=== PATIENT | female | born 2000 | race African-American/Black ===

== ENCOUNTER 2025-02-02 06:45 | Emergency (ER) | payer OTHER ==
[~2025-02-02] VITALS: Ht 162.6 cm; Wt 82.8 kg
[2025-02-02 07:53] LABS: KETONE, URINE AUTO RFX NEGATIVE (NEGATIVE); LEUKOCYTE ESTERASE UR AUTO RFX NEGATIVE (NEGATIVE); NITRITE, URINE AUTO RFX NEGATIVE (NEGATIVE); RBC, URINE AUTO RFX 1 /HPF (0-3); SQUAM EPITHELIAL CELL UR AURFX 0 /HPF (0-6); WBC, URINE AUTO RFX 0 /HPF (0-3)
[2025-02-02 08:03] LABS: BASO # 0.0 10^3/uL (0.0-0.2); BASO % 0.4 % (0.0-1.0); EOS # 0.1 10^3/uL (0.0-0.5); EOS % 1.2 % (0.0-3.0); LYMPH # 2.0 10^3/uL (1.5-5.0); LYMPH % 39.0 % (24.0-44.0); MONO # 0.4 10^3/uL (0.0-0.8); MONO % 8.0 % (2.0-8.0); NEUTROPHILS # 2.6 10^3/uL (1.5-8.5); NEUTROPHILS % 51.2 % (36.0-66.0); PLATELET COUNT, AUTOMATED 366 10^3/uL (150-450)
[2025-02-02 08:18] LABS: HCG, SERUM QUANTITATIVE < 2.6 MIU/ML (<4.2)
[2025-02-02 08:19] LABS: ALT/SGPT 16 U/L (7.0-40); AST/SGOT 16 U/L (<34); CALCIUM LEVEL 9.3 MG/DL (8.5-10.1); CARBON DIOXIDE LEVEL 26 MMOL/L (20-31); CHLORIDE LEVEL 105 MMOL/L (98-107); CREATININE FOR GFR 0.60 MG/DL (0.55-1.30); GLOMERULAR FILTRATION RATE > 90.0 (>60); POTASSIUM SERUM 4.3 MMOL/L (3.5-5.1); SODIUM LEVEL 141 MMOL/L (136-145)
[2025-02-02] MEDS: ONDANSETRON 4MG 2ML VIAL IV ONE (08:35)
[2025-02-02] MEDS: KETOROLAC 30 MG/ML 1 ML VIAL IV ONE (08:35)
[2025-02-02] MEDS ORDERED: ISOVUE-370 76% 100 ML VIAL As Ordered ONE (11:01)
[2025-02-02 12:00] VITALS: BP 123/58; O2SAT 98
[2025-02-02] MEDS ORDERED: KETO-204 PO (12:08)
[2025-02-02 12:14] VITALS: TEMP 99.3
== END 2025-02-02 12:22 | disposition home or self-care (01) ==
LOC: EDBD 06:45 → M ED 06:45
DX: N91.0 Primary amenorrhea (principal); R10.9 Unspecified abdominal pain; K76.0 Fatty (change of) liver, not elsewhere classified; Z79.2 Long term (current) use of antibiotics
CPT/HCPCS: 74177; 76856; 80053; 81001; 83690; 84702; 85025; 96374; 99284; J1885; J2405; Q9967

== ENCOUNTER → 2025-04-10 | Outpatient (CLI) | payer OTHER ==
[~2025-04-10] MED LIST: KETO-204 PO
== END ==
LOC: M WUC 12:45
DX: M54.2 Cervicalgia (principal)